=== PATIENT | male | born 1955 | race Caucasian/White ===

== ENCOUNTER 2016-09-28 14:46 | Emergency (ER) | payer OTHER ==
[2016-09-28 14:59] VITALS: BP 119/70; PULSE 62; RESP 18; TEMP 97.9
[2016-09-28] MEDS ORDERED: PROPARACAINE 0.5% OPHTH DROPS 15 ML BTL ONE (15:00)
[2016-09-28] MEDS: PILOCARPINE 1% OPHTH DROPS 15 ML BTL LEFT EYE STA ×2 (15:07→15:14)
[2016-09-28] MEDS ORDERED: PROPARACAINE 0.5% OPHTH DROPS 15 ML BTL LEFT EYE STA (15:08)
[2016-09-28] MEDS ORDERED: TOBRAMYCIN 0.3% OPHTH OINT 3.5 GM TUBE LEFT EYE STA (15:23)
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
== END 2016-09-28 15:33 | disposition home or self-care (01) ==
LOC: EC 14:46
DX: S05.02XA Injury of conjunctiva and corneal abrasion without foreign body, left eye, initial encounter (principal); W20.8XXA Other cause of strike by thrown, projected or falling object, initial encounter
CPT/HCPCS: 99283

== ENCOUNTER 2017-01-13 08:05 | Day surgery (SDC) | payer OTHER ==
[2017-01-11 13:04] VITALS: BMI 26.4
[~2017-01-13 08:05] MED LIST: LACTATED RINGERS 1,000 ML IV SCH
[2017-01-13 08:22] VITALS: RESP 16; TEMP 98.3
[2017-01-13] MEDS ORDERED: LIDOCAINE 1% 20 ML VIAL (10MG/ML) FOR IV START INTRADERMA ONE (08:22)
[2017-01-13] MEDS ORDERED: PROPOFOL 10 MG/ML 20 ML VIAL IV ONE (09:04)
--- NOTE | 2017-01-13 09:18 | P.PCN ---
Date of Procedure: 01/13/17 Procedure(s) Performed: BRIEF HISTORY: Patient is a 61-year-old pleasant male, scheduled for an elective colonoscopy as a part of evaluation of change in bowel habits. PROCEDURE PERFORMED: Colonoscopy. PREOPERATIVE DIAGNOSIS: Change In bowel habits. IV sedation per Anesthesia. PROCEDURE: After informed consent was obtained, the patient, was brought into the endoscopy unit. IV sedation was administered by Anesthesia under continuous monitoring. Digital rectal examination was normal. Initially the Olympus CF- 160 flexible video colonoscope was then inserted in the rectum, gradually advanced into the cecum without any difficulty. Careful examination was performed as the scope was gradually being withdrawn. Ileocecal valve and the appendiceal orifice were visualized and appeared normal. Prep was excellent. Mucosa of the cecum, ascending colon, transverse colon, descending colon, sigmoid colon, and rectum appeared normal. Diffuse scattered diverticulosis seen. Retroflexion was performed in the rectum and no lesions were seen. The patient tolerated the procedure well. IMPRESSION: Normal-appearing colon from rectum to cecum with no evidence of colorectal neoplasia. . Diffuse scattered diverticulosis. RECOMMENDATIONS: Findings of this examination were discussed with the patient as well as his family. He was advised to have a repeat screening colonoscopy in 10 years..
[2017-01-13 10:07] VITALS: BP 117/71; PULSE 52
== END 2017-01-13 10:23 | disposition home or self-care (01) ==
LOC: ORWHC2ENDO 08:05
PROVIDERS: ATTEND Internal Medicine Gastroenterology
DX: K57.30 Diverticulosis of large intestine without perforation or abscess without bleeding (principal); N40.0 Benign prostatic hyperplasia without lower urinary tract symptoms; Z79.899 Other long term (current) drug therapy
CPT/HCPCS: 45378; J2704

== ENCOUNTER → 2017-03-27 | Outpatient (CLI) | payer OTHER ==
--- NOTE | 2017-03-27 09:38 | XR ---
EXAMINATION TYPE: XR cervical spine comp DATE OF EXAM: 03/27/2017 COMPARISON: NONE HISTORY: Pain TECHNIQUE: Four views are submitted. FINDINGS: The odontoid is intact. There are no compression deformities. The prevertebral soft tissue structur es are within normal limits. There is multilevel degenerative disc disease with severe changes at C5 -6 and C6-C7. Posterior spondylosis and facet arthropathy noted at multiple levels. Severe foraminal encroachment C5-6 and C6-C7. IMPRESSION: 1. Multilevel severe degenerative disc disease and facet arthropathy with foraminal encroachment. MRI recommended.
== END ==
LOC: RADXRYALE 09:04
PROVIDERS: ATTEND Physician Assistant Medical
DX: M99.71 Connective tissue and disc stenosis of intervertebral foramina of cervical region (principal); M50.30 Other cervical disc degeneration, unspecified cervical region; M46.82 Other specified inflammatory spondylopathies, cervical region
CPT/HCPCS: 72050

== ENCOUNTER → 2017-04-26 | Outpatient (CLI) | payer OTHER ==
--- NOTE | 2017-04-26 17:57 | MR ---
EXAMINATION TYPE: MR cervical spine wo con DATE OF EXAM: 04/26/2017 COMPARISON: Plain film 03/27/2017 HISTORY: Neck pain, faith arm numbness x 3 months TECHNIQUE: Multiplanar, multisequence images of the cervical spine were acquired. C2-C3: No evidence for degenerative disc disease. No disc bulge/herniation or protrusion. No Canal stenosis. Foramina are patent bilaterally. C3-C4: Loss of disc signal is compatible with disc desiccation. Lateral extension endplate disc compl ex causes some mild foraminal encroachment on the right. No significant central stenosis. C4-C5: Loss of disc height and signal is present, posterior broad-based disc bulge causes mild anteri or mass effect on the thecal sac. Lateral extension of endplate disc complex causes foraminal encroac hment which is mild right greater than left. No significant central stenosis. C5-C6: There is loss of disc height with associated endplate spondylosis, discogenic marrow signal ch aram. Posterior extension of endplate disc complex may contact the anterior cervical cord, mild to mo derate central canal stenosis is present, lateral extension endplate disc complex causes foraminal en croachment right greater than left. C6-C7: Posterior extension of endplate disc complex causes anterior mass effect on the thecal sac. Le ft greater than right foraminal encroachment is present. Mild central stenosis. Loss of disc height a nd signal is present. C7-T1: No evidence for degenerative disc disease. No disc bulge/herniation or protrusion. No Canal stenosis. Foramina are patent bilaterally. Cervical segments are intact. There is normal alignment. Cervical spinal cord is of normal signal. Craniovertebral junction relationships are within normal limits. IMPRESSION: Degenerative disc disease, spinal stenosis, multilevel foraminal encroachment as described.
== END | disposition home or self-care (01) ==
LOC: RADMRIMAIN 15:43
PROVIDERS: ATTEND Physician Assistant Medical
DX: M48.02 Spinal stenosis, cervical region (principal); M50.31 Other cervical disc degeneration, high cervical region
CPT/HCPCS: 72141

== ENCOUNTER → 2017-10-26 | Outpatient (CLI) | payer OTHER ==
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
== END | disposition home or self-care (01) ==
LOC: RADXRMAIN 10:35
PROVIDERS: ATTEND Emergency Medicine
DX: M47.814 Spondylosis without myelopathy or radiculopathy, thoracic region (principal); M41.86 Other forms of scoliosis, lumbar region; M51.36 Other intervertebral disc degeneration, lumbar region
CPT/HCPCS: 72072; 72100

== ENCOUNTER → 2017-10-30 | Outpatient (CLI) | payer OTHER ==
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
== END | disposition home or self-care (01) ==
LOC: RADCTMAIN 11:57
PROVIDERS: ATTEND Emergency Medicine
DX: M50.322 Other cervical disc degeneration at C5-C6 level (principal); M99.71 Connective tissue and disc stenosis of intervertebral foramina of cervical region; R51 Headache
CPT/HCPCS: 70450; 72125

== ENCOUNTER 2017-11-24 15:14 | Emergency (ER) | payer OTHER ==
[2017-11-24 15:45] VITALS: RESP 18
[2017-11-24] MEDS ORDERED: TETANUS-DIPHTHERIA TOX (PF) 0.5 ML VIAL IM ONE (15:59)
--- NOTE | 2017-11-24 16:02 | ED ---
Wound/Laceration HPI - General Chief Complaint: Wound/Laceration Stated Complaint: IHS/Lac thumb Time Seen by Provider: 11/24/17 15:49 Source: patient Mode of arrival: ambulatory Limitations: no limitations - History of Present Illness Initial Comments: Patient is a 62-year-old male presenting for right thumb laceration. Patient states that he was at work and he cut the right thumb on sheet metal. He went to an urgent care and they sent him here because there was concern about tendon injury. He denies any numbness in the thumb as well as decreased strength. He also is unsure when his last tetanus shot was - Related Data Home Medications Medication Instructions Recorded Confirmed Finasteride [Proscar] 5 mg PO HS 11/24/17 11/24/17 Allergies Allergy/AdvReac Type Severity Reaction Status Date / Time No Known Allergies Allergy Verified 11/24/17 16:09 Review of Systems ROS Statement: Those systems with pertinent positive or pertinent negative responses have been documented in the HPI. Constitutional: Negative for chills, fatigue and fever. HENT: Negative for congestion. Respiratory: Negative for chest tightness, shortness of breath and wheezing. Negative for cough Cardiovascular: Negative for chest pain and palpitations. Gastrointestinal: Negative for abdominal pain. Negative for abdominal distention , diarrhea, nausea and vomiting. Genitourinary: Negative for dysuria. Musculoskeletal: Negative for back pain, neck pain and neck stiffness. Skin: Positive for laceration Neurological: Negative for dizziness, speech difficulty, weakness and light- headedness. Psychiatric/Behavioral: Negative for agitation and confusion. Negative for anxiety ROS Other: All systems not noted in ROS Statement are negative. Past Medical History Past Medical History: Prostate Disorder Additional Past Medical History / Comment(s): hx diverticulis, HX KIDNEY STONES History of Any Multi-Drug Resistant Organisms: None Reported Past Surgical History: Tonsillectomy Additional Past Surgical History / Comment(s): previous colonoscopy Past Anesthesia/Blood Transfusion Reactions: No Reported Reaction Past Psychological History: No Psychological Hx Reported Smoking Status: Never smoker Past Alcohol Use History: Occasional Past Drug Use History: None Reported - Past Family History Mother Family Medical History: No Reported History General Exam - General Exam Comments Initial Comments: Constitutional: Pt is oriented to person, place, and time. Pt appears well- developed and well-nourished. No distress. HENT: Head: Normocephalic and atraumatic. Eyes: EOM are normal. Neck: Normal range of motion. Neck supple. Cardiovascular: Normal rate, regular rhythm, S1 normal, S2 normal and normal heart sounds. Exam reveals no gallop and no friction rub. No murmur heard. Pulmonary/Chest: Effort normal and breath sounds normal. No tachypnea and no bradypnea. No respiratory distress. No wheezes or rales noted. Abdominal: Soft. Bowel sounds are normal. Pt exhibits no shifting dullness, no distension, no pulsatile liver, no fluid wave, no abdominal bruit and no ascites. There is no tenderness. There is no rigidity, no rebound, no guarding, no tenderness at McBurney's point and negative Pires's sign. Musculoskeletal: 1 cm laceration on the dorsal aspect of the right thumb. Full range of motion is present and 5 out of 5 strength in all joints of the right thumb. Neurovascularly intact. Neurological: Pt is alert and oriented to person, place, and time. No cranial nerve deficit. Skin: Skin is warm and dry. No rash noted. Pt is not diaphoretic. No erythema. No pallor. Laceration as noted above Psychiatric: Pt has a normal mood and affect. Pt behavior is normal. Thought content normal. Limitations: no limitations Course Vital Signs 11/24/17 11/24/17 15:41 17:47 Temperature 98.3 F 97.8 F Pulse Rate 73 57 L Respiratory 18 18 Rate Blood Pressure 107/65 131/81 O2 Sat by Pulse 97 96 Oximetry Procedures - Laceration Laceration #1 Time Out Performed: Yes Site: hand Size (cm): 1 Description: linear Depth: simple, single layer Anesthetic Used: lidocaine 1% Anesthesia Technique: local infiltration Pre-repair: wound explored, irrigated extensively, deep structures intact Type of Sutures: nylon Size of Sutures: 5-0 Number of Sutures: 3 Technique: simple, interrupted Patient Tolerated Procedure: well Medical Decision Making - Medical Decision Making X-ray was performed and showed no evidence of acute pathology or retained foreign body. There also appeared to be no tendon involvement as there was full range of motion of the DIP and the patient was neurovascularly intact. Patient was given TD shot and laceration was repaired As noted in the procedure portion of this note. Patient was advised to follow up with PCP in next 1-2 days as well as suture removal in approximately 5-7 days. He is advised to return to emergency department if he started to develop significant swelling, effusion, erythema or fevers. Patient was agreeable to plan. Disposition Clinical Impression: Thumb laceration Disposition: HOME SELF-CARE Condition: Good Instructions: Laceration (ED) Is patient prescribed a controlled substance at d/c from ED?: No Referrals: [facility] [Primary Care Provider] - 1-2 days Time of Disposition: 17:23
--- NOTE | 2017-11-24 16:30 | XR ---
EXAMINATION TYPE: XR hand limited RT DATE OF EXAM: 11/24/2017 CLINICAL HISTORY: Laceration injury with pain TECHNIQUE: Frontal and lateral images of the right hand are obtained. COMPARISON: None. FINDINGS: There is no acute fracture/dislocation evident in the right hand. The joint spaces in the right hand appear within normal limits. Linear lucency consistent with laceration is seen in the payton on of the first interphalangeal joint on 2 views. No suspicious radiodense foreign body is identified . Overlying bracelet right wrist level is incidentally seen. IMPRESSION: There is no acute fracture or dislocation in the right hand.
[2017-11-24] MEDS ORDERED: LIDOCAINE (PF) 10 MG/ML 2 ML VIAL SQ STA (16:41)
[2017-11-24] MEDS ORDERED: LIDOCAINE 1% INJ 10MG/ML (20 ML MDV) SQ STA (16:54)
[2017-11-24 17:48] VITALS: BP 131/81; PULSE 57; TEMP 97.8
== END 2017-11-24 17:48 | disposition home or self-care (01) ==
LOC: EC 15:14
DX: S61.011A Laceration without foreign body of right thumb without damage to nail, initial encounter (principal); N42.9 Disorder of prostate, unspecified; Z79.899 Other long term (current) drug therapy; Z23 Encounter for immunization; W45.8XXA Other foreign body or object entering through skin, initial encounter; Y93.89 Activity, other specified; Y92.69 Other specified industrial and construction area as the place of occurrence of the external cause; Y99.0 Civilian activity done for income or pay
CPT/HCPCS: 12001; 90471; 90714; 99283

== ENCOUNTER → 2017-12-04 | Outpatient (CLI) | payer OTHER | END | disposition home or self-care (01) | LOC: LABWHC1 15:40 | PROVIDERS: ATTEND Family Medicine | DX: Z13.88 Encounter for screening for disorder due to exposure to contaminants (principal) | CPT/HCPCS: 36415; 83655 ==

== ENCOUNTER 2018-03-25 12:16 | Emergency (ER) | payer OTHER ==
[2018-03-25 12:37] VITALS: BP 99/65; PULSE 85; RESP 18; TEMP 97.8
[2018-03-25] MEDS ORDERED: ORPHENADRINE 30 MG/ML 2 ML VIAL IM STA (13:26)
[2018-03-25] MEDS ORDERED: KETOROLAC 60 MG/2 ML VIAL IM STA (13:26)
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
== END 2018-03-25 15:26 | disposition home or self-care (01) ==
LOC: EC 12:16 → SUPCPDRO 12:16 → EC 15:26
DX: M54.5 Low back pain (principal); Z79.899 Other long term (current) drug therapy; Z87.442 Personal history of urinary calculi
CPT/HCPCS: 72100; 99283; 96372 ×2; J2360; J1885

== ENCOUNTER → 2018-05-28 | Outpatient (CLI) | payer OTHER ==
--- NOTE | 2018-05-28 07:48 | MR ---
EXAMINATION TYPE: MR lumbar spine wo con DATE OF EXAM: 05/28/2018 6:42 AM COMPARISON: NONE HISTORY: Low back pain Multiplanar, MultiSpin echo imaging of the lumbar spine was performed. T11-T12: Moderate disc desiccation. Left paracentral disc herniation identified only on the sagittal data set. Dedicated MRI of the thoracic spine advised. T12-L1: Within normal limits. L1-L2: There is mild disc desiccation. Mild circumferential disc bulge noted. Minimal effacement vent ral thecal sac. No evidence for disc herniation or central stenosis. Neural foramina are patent bilat erally. Ventral spondylosis noted. L2-L3: There is mild disc desiccation. Mild circumferential disc bulge noted. Minimal effacement vent ral thecal sac. No evidence for disc herniation or central stenosis. Neural foramina are patent bilat erally. Ventral spondylosis noted. L3-L4: There is mild disc desiccation. Mild circumferential disc bulge noted. Minimal effacement vent ral thecal sac. No evidence for disc herniation or central stenosis. Neural foramina are patent bilat erally. Ventral spondylosis noted. L4-L5: There is mild disc desiccation. Mild circumferential disc bulge noted. Minimal effacement vent ral thecal sac. No evidence for disc herniation or central stenosis. Neural foramina are patent bilat erally. Ventral spondylosis noted. L5-S1: There is mild disc desiccation. Mild circumferential disc bulge noted. Minimal effacement vent ral thecal sac. No evidence for disc herniation or central stenosis. Neural foramina are patent bilat erally. Ventral spondylosis noted. Lumbar segments are intact. No paraspinal masses are identified. Conus medullaris has a normal appe arance. IMPRESSION: 1. Left paracentral disc herniation at T11-12. Dedicated MRI of the thoracic spine is advised. See ab ove. 2. Multilevel degenerative disc disease with disc bulging. No disc herniation or central stenosis cecilia reciated.
== END | disposition home or self-care (01) ==
LOC: RADMRIMAIN 06:05
PROVIDERS: ATTEND Family Medicine
DX: M51.16 Intervertebral disc disorders with radiculopathy, lumbar region (principal)
CPT/HCPCS: 72148

== ENCOUNTER → 2018-06-08 | Outpatient (CLI) | payer OTHER ==
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
== END ==
LOC: RADMRIMAIN 06:01
PROVIDERS: ATTEND Family Medicine
DX: M51.24 Other intervertebral disc displacement, thoracic region (principal); M47.814 Spondylosis without myelopathy or radiculopathy, thoracic region; D18.09 Hemangioma of other sites
CPT/HCPCS: 72146

== ENCOUNTER 2018-09-09 06:09 | Emergency (ER) | payer OTHER ==
[2018-09-09 06:18] VITALS: TEMP 97.7
[2018-09-09 07:12] LABS: Appearance,Urine Clear (Clear); Bilirubin,Urine Negative (Negative); Blood,Urine Negative (Negative); Color,Urine Yellow; Glucose,Urine (UA) Negative (Negative); Ketones,Urine Negative (Negative); Leukocyte Esterase,Urine Negative (Negative); Nitrite,Urine Negative (Negative); PH, Urine 6.5 (5.0-8.0); Protein,Urine Negative (Negative); Specific Gravity,Urine 1.023 (1.001-1.035); Urobilinogen,Urine <2.0 mg/dL (<2.0)
[2018-09-09] MEDS ORDERED: SODIUM CHLORIDE 0.9% 1,000 ML IV ONE (07:12)
[2018-09-09] MEDS ORDERED: SODIUM CHLORIDE 0.9% 500 ML 500 ML IV ONE (07:12)
[2018-09-09] MEDS ORDERED: KETOROLAC 30 MG/ML 1 ML VIAL IVP STA (07:13)
--- NOTE | 2018-09-09 07:15 | XR ---
EXAM: XR Abdomen, 1 View CLINICAL HISTORY: Pain TECHNIQUE: Upright view of the abdomen/pelvis. COMPARISON: No relevant prior studies available. FINDINGS: No free air. No dilated bowel loops. Increased fecal burden in the right colon. Scoliosis with degenerative changes in the lumbar spine. Small left renal stones. IMPRESSION: No free air. Left renal stones. Increased fecal burden in the right colon. No radiographic evidence of small bowel obstruction.
--- NOTE | 2018-09-09 07:27 | XR ---
EXAM: XR Lumbar Spine, 2 or 3 Views CLINICAL HISTORY: Pain TECHNIQUE: Frontal and lateral views of the lumbar spine. COMPARISON: May 28, 2018 MRI. FINDINGS: No radiographic evidence of acute fractures. Generalized osteopenia and multilevel degenerative disease. Mild dextroscoliosis. Facet arthropathy. Left renal stones. IMPRESSION: Multilevel disc degenerative disease and facet arthropathy. No acute fracture.
--- NOTE | 2018-09-09 07:28 | ED ---
Back Pain HPI - General Chief Complaint: Back Pain/Injury Stated Complaint: Back Pain Time Seen by Provider: 09/09/18 07:00 Source: patient, RN notes reviewed Limitations: no limitations, physical limitation - History of Present Illness Initial Comments: 62-year-old male presents emergency Department with chief complaint of low back pain. Patient states that he was awoken with sharp low back and flank pain around 5:30 this morning. Patient states took his tramadol which alleviated some of symptoms. Patient has no dysuria no hematuria no diarrhea no constipation. Patient does have a history kidney stones. Patient states that this feels slightly different. Denies any chest pain shortness of breath. Denies any trauma. Patient states pain is slightly worsened by movement. - Related Data Home Medications Medication Instructions Recorded Confirmed Doxazosin Mesylate 8 mg PO DAILY 09/09/18 09/09/18 traMADol HCL [Ultram] 50 mg PO Q6HR PRN 09/09/18 09/09/18 Previous Rx's Medication Instructions Recorded Ketorolac [Toradol] 10 mg PO Q8HR #15 tab 09/09/18 Methocarbamol [Robaxin] 500 mg PO TID PRN #15 tab 09/09/18 Allergies Allergy/AdvReac Type Severity Reaction Status Date / Time No Known Allergies Allergy Verified 09/09/18 08:38 Review of Systems ROS Statement: Those systems with pertinent positive or pertinent negative responses have been documented in the HPI. ROS Other: All systems not noted in ROS Statement are negative. Past Medical History Past Medical History: Prostate Disorder Additional Past Medical History / Comment(s): hx diverticulis, HX KIDNEY STONES, back problems, History of Any Multi-Drug Resistant Organisms: None Reported Past Surgical History: Tonsillectomy Additional Past Surgical History / Comment(s): previous colonoscopy, Past Anesthesia/Blood Transfusion Reactions: No Reported Reaction Past Psychological History: No Psychological Hx Reported Smoking Status: Never smoker Past Alcohol Use History: Occasional Past Drug Use History: None Reported - Past Family History Mother Family Medical History: No Reported History General Exam Limitations: no limitations, physical limitation General appearance: alert, in no apparent distress Head exam: Present: atraumatic, normocephalic, normal inspection Eye exam: Present: normal appearance, PERRL, EOMI. Absent: scleral icterus, conjunctival injection, periorbital swelling Respiratory exam: Present: normal lung sounds bilaterally. Absent: respiratory distress, wheezes, rales, rhonchi, stridor Cardiovascular Exam: Present: regular rate, normal rhythm, normal heart sounds. Absent: systolic murmur, diastolic murmur, rubs, gallop, clicks GI/Abdominal exam: Present: soft, tenderness (Mild lower abdominal), normal bowel sounds. Absent: distended, guarding, rebound, rigid Back exam: Present: full ROM, tenderness, CVA tenderness (R), CVA tenderness (L), paraspinal tenderness. Absent: vertebral tenderness Neurological exam: Present: alert, oriented X3, CN II-XII intact Skin exam: Present: warm, dry, intact, normal color. Absent: rash Course Vital Signs 09/09/18 06:15 Temperature 97.7 F Pulse Rate 71 Respiratory 16 Rate Blood Pressure 107/71 O2 Sat by Pulse 95 Oximetry Medical Decision Making - Medical Decision Making 62-year-old male presents emergency Department with chief complaint of back pain, abdominal discomfort. CT labs urinalysis obtained no acute findings. Patient has bilateral nephrolithiasis. Patient's pain may be mechanical lumbar back pain. Patient will be discharged he'll continue tramadol and will be given Robaxin. Return parameters were discussed. - Lab Data Result diagrams: 09/09/18 07:48 09/09/18 07:48 Lab Results 09/09/18 09/09/18 09/09/18 Range/Units 06:20 07:48 07:48 WBC 8.1 (3.8-10.6) k/uL RBC 5.08 (4.30-5.90) m/uL Hgb 14.7 (13.0-17.5) gm/dL Hct 45.1 (39.0-53.0) % MCV 88.8 (80.0-100.0) fL MCH 28.9 (25.0-35.0) pg MCHC 32.6 (31.0-37.0) g/dL RDW 12.4 (11.5-15.5) % Plt Count 236 (150-450) k/uL Neutrophils % 69 % Lymphocytes % 21 % Monocytes % 6 % Eosinophils % 1 % Basophils % 1 % Neutrophils # 5.6 (1.3-7.7) k/uL Lymphocytes # 1.7 (1.0-4.8) k/uL Monocytes # 0.5 (0-1.0) k/uL Eosinophils # 0.1 (0-0.7) k/uL Basophils # 0.1 (0-0.2) k/uL Sodium 139 (137-145) mmol/L Potassium 4.3 (3.5-5.1) mmol/L Chloride 110 H (98-107) mmol/L Carbon Dioxide 23 (22-30) mmol/L Anion Gap 6 mmol/L BUN 23 H (9-20) mg/dL Creatinine 0.93 (0.66-1.25) mg/dL Est GFR (CKD-EPI)AfAm >90 (>60 ml/min/1.73 sqM) Est GFR (CKD-EPI)NonAf 88 (>60 ml/min/1.73 sqM) Glucose 107 H (74-99) mg/dL Calcium 8.8 (8.4-10.2) mg/dL Total Bilirubin 0.7 (0.2-1.3) mg/dL AST 20 (17-59) U/L ALT 23 (21-72) U/L Alkaline Phosphatase 65 (38-126) U/L Total Protein 6.3 (6.3-8.2) g/dL Albumin 3.8 (3.5-5.0) g/dL Lipase 62 (23-300) U/L Urine Color Yellow Urine Appearance Clear (Clear) Urine pH 6.5 (5.0-8.0) Ur Specific Stryker 1.023 (1.001-1.035) Urine Protein Negative (Negative) Urine Glucose (UA) Negative (Negative) Urine Ketones Negative (Negative) Urine Blood Negative (Negative) Urine Nitrite Negative (Negative) Urine Bilirubin Negative (Negative) Urine Urobilinogen <2.0 (<2.0) mg/dL Ur Leukocyte Esterase Negative (Negative) Disposition Clinical Impression: Back pain, Nephrolithiasis Disposition: HOME SELF-CARE Condition: Stable Instructions (If sedation given, give patient instructions): Acute Low Back Pain (ED) Additional Instructions: Please return to the Emergency Department if symptoms worsen or any other concerns. Prescriptions: Methocarbamol [Robaxin] 500 mg PO TID PRN #15 tab PRN Reason: muscle spasms Ketorolac [Toradol] 10 mg PO Q8HR #15 tab Is patient prescribed a controlled substance at d/c from ED?: No Referrals: [facility],Clinic [Primary Care Provider] - 1-2 days Time of Disposition: 08:49
[2018-09-09 08:07] LABS: Basophils # (A) 0.1 k/uL (0-0.2); Basophils % (A) 1 %; Eosinophils # (A) 0.1 k/uL (0-0.7); Eosinophils % (A) 1 %; HCT 45.1 % (39.0-53.0); HGB 14.7 gm/dL (13.0-17.5); Lymphocytes # (A) 1.7 k/uL (1.0-4.8); Lymphocytes % (A) 21 %; MCH 28.9 pg (25.0-35.0); MCHC 32.6 g/dL (31.0-37.0); MCV 88.8 fL (80.0-100.0); Mean Platelet Volume 6.9; Monocytes # (A) 0.5 k/uL (0-1.0); Monocytes % (A) 6 %; Neutrophils # (A) 5.6 k/uL (1.3-7.7); Neutrophils % (A) 69 %; Platelet Count 236 k/uL (150-450); RBC 5.08 m/uL (4.30-5.90); RDW 12.4 % (11.5-15.5); WBC 8.1 k/uL (3.8-10.6)
[2018-09-09 08:22] LABS: ALT 23 U/L (21-72); AST 20 U/L (17-59); Albumin 3.8 g/dL (3.5-5.0); Alkaline Phosphatase 65 U/L (38-126); Anion Gap 6 mmol/L; Blood Urea Nitrogen 23 mg/dL (9-20); Calcium 8.8 mg/dL (8.4-10.2); Carbon Dioxide 23 mmol/L (22-30); Chloride 110 mmol/L (98-107); Glucose 107 mg/dL (74-99); Lipase 62 U/L (23-300); Potassium 4.3 mmol/L (3.5-5.1); Sodium 139 mmol/L (137-145); Total Bilirubin 0.7 mg/dL (0.2-1.3); Total Protein 6.3 g/dL (6.3-8.2)
--- NOTE | 2018-09-09 08:44 | CT ---
EXAMINATION TYPE: CT abdomen pelvis wo con DATE OF EXAM: 09/09/2018 COMPARISON: Previous study dated 12/17/2012. HISTORY: Low back pain CT DLP: 552.1 mGycm Automated exposure control for dose reduction was used. FINDINGS: There is dependent atelectasis in the dependent portions of both lungs. There is no pleural or pericardial fluid. The heart is not enlarged. Within the abdomen, there is a stable appearing lucent lesion in the dome of the posterior segment of the right lobe of the liver unchanged from previous. The spleen and gallbladder are normal. Both adrenal glands are normal. There are several small stones in the posterior upper pole calyx of the right kidney. The largest jose sures 3 mm. There is no evidence of hydronephrosis. There is a 6 mm stone in the anterior middle pole calyx of the left kidney. There is no hydronephrosis. Limited views of the pancreas are unremarkable. There is no significant retroperitoneal, iliac or inguinal adenopathy. The bladder appears unremarkable. There are scattered diverticula present on the left side of the colon. I do not see radiographic evid ence of diverticulitis. The appendix is normal. Small bowel loops are of normal caliber. There is no free fluid and no free air. There is degenerative disc disease, facet arthropathy and mild hypertrophic spondylosis throughout th e lumbar spine. IMPRESSION: 1. BILATERAL NONOBSTRUCTING NEPHROLITHIASIS. 2. STABLE LESION IN THE RIGHT LOBE OF THE LIVER COULD BE FURTHER ASSESSED WITH ULTRASOUND. 3. UNCOMPLICATED DIVERTICULOSIS OF THE LEFT SIDE OF THE COLON. 4. DEGENERATIVE CHANGES WITHIN THE SPINE. 5. NORMAL-APPEARING APPENDIX.
[2018-09-09 09:28] VITALS: BP 116/72; PULSE 53; RESP 18
== END 2018-09-09 09:27 | disposition home or self-care (01) ==
LOC: EC 06:09
DX: N20.0 Calculus of kidney (principal); N42.9 Disorder of prostate, unspecified; Z79.899 Other long term (current) drug therapy; Z87.442 Personal history of urinary calculi
CPT/HCPCS: 36415; 80053; 83690; 85025; 81003; 72100; 74018; 74176; 99284; 96374; 96361 ×2; J1885

== ENCOUNTER → 2018-11-26 | Outpatient (CLI) | payer OTHER ==
--- NOTE | 2018-11-26 15:16 | XR ---
EXAMINATION TYPE: XR chest 2V DATE OF EXAM: 11/26/2018 COMPARISON: None INDICATION: Contusion pneumothorax left lower rib pain TECHNIQUE: Frontal and lateral views of the chest are obtained. FINDINGS: The heart size is normal. The pulmonary vasculature is normal. The lungs are clear. No pneumothorax is evident. Old rib fractures in the upper left ribs are eviden t. IMPRESSION: 1. No acute pulmonary process. 2. No acute rib abnormalities
--- NOTE | 2018-11-26 15:18 | XR ---
EXAMINATION TYPE: XR ribs LT DATE OF EXAM: 11/26/2018 COMPARISON: None HISTORY: Fall contusion pain TECHNIQUE: Two-view left RIBS FINDINGS: Old left fourth rib fractures evident. No acute left-sided rib fractures are evident. No pn eumothorax is evident. IMPRESSION: 1. Normal left ribs
== END | disposition home or self-care (01) ==
LOC: RADXRMAIN 14:29
PROVIDERS: ATTEND Emergency Medicine
DX: S20.212A Contusion of left front wall of thorax, initial encounter (principal)
CPT/HCPCS: 71046

== ENCOUNTER → 2019-09-04 | Outpatient (CLI) | payer OTHER ==
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
== END | disposition home or self-care (01) ==
LOC: PNWHC3 06:45
PROVIDERS: ATTEND Anesthesiology
DX: Z53.9 Procedure and treatment not carried out, unspecified reason (principal)

== ENCOUNTER → 2019-09-17 | Outpatient (CLI) | payer OTHER | END | disposition home or self-care (01) | LOC: LABWHC1 08:01 | PROVIDERS: ATTEND Family Medicine | DX: Z11.59 Encounter for screening for other viral diseases (principal) ==

== ENCOUNTER → 2019-09-19 | Day surgery (SDC) | payer OTHER ==
[~2019-09-19] MED LIST changes: +IOPAMIDOL M200 10 ML VIAL ONE; +IV FLUID CONTINUATION 1,000 ML IV ONE; +LACTATED RINGERS 1,000 ML IV ONE; +LIDOCAINE 1% (10MG/ML) FOR IV START INTRADERMA ONE; +MIDAZOLAM 2 MG/2 ML VIAL ONE; +ROPIVACAINE 5MG/ML 20ML VIAL ONE; +TRIAMCINOLONE ACETONIDE 40 MG/ML 1 ML VIAL ONE
[2019-09-19 06:19] VITALS: TEMP 97.5
[2019-09-19 07:32] VITALS: RESP 16
--- NOTE | 2019-09-19 07:35 | P.PN ---
Progress Note - Text Progress Note Date: 09/19/19 DESCRIPTION OF PROCEDURE(S): PROCEDURE: Bilateral Lumbar Facet Injections L4-L5, L5-S1 with fluoroscopy PREOPERATIVE DIAGNOSIS : 1- Lumbar spondylosis with Facet Arthropathy without myelopathy . 2- Lumber degenerative disc disease POSTOPERATIVE DIAGNOSIS: 1- Lumbar spondylosis with Facet Arthropathy without myelopathy . 2- Lumber degenerative disc disease ANESTHESIA: IV sedation with Versed 1mg COMPLICATION: None. IV FLUIDS: 100 mL of normal saline. PROCEDURE INDICATION: Chronic low back pain secondary to Facet arthropathy unresponsive to conservative treatment. Patient had diagnostic medial branch block on last visit however after procedure he went home and slept for the entire day and was unable to notice any benefit as the medication and worn off. I discussed that he needed to be active today and also discussed about attempting to do intra-articular injections to provide him with a little longer relief to see if there is any benefit. PROCEDURE DESCRIPTION: the patient was seen and identified in the preop holding area , risks and benefits and possible complications of the procedure and alternative were discussed with the patient, and the patient agreed to proceed with the procedure and signed the consent IV was started and vital signs monitored during the procedure and fluoroscopy was used to maximize the benefit and accuracy of the needle placement, and sedation was given to decrease patient anxiety, patient was taken to the procedure room and placed in prone position vital signs monitored in the back prepped with chlorhexidine X3 then under strict sterile technique using a right oblique fluoroscopy ,the facet joint made up of the inferior articulating process and the superior articulating process of the right L4- 5, and L5-S1 vertebra which corresponding to the fluoroscopy image was identified , a 25- gauge Quincke-type needle was advanced to the inferior aspect of the facet joint of L4-5 and L5-S1. Once the joint was accessed, 0.25ml Omnipaque was used and showed appropriate arthrogram. After negative aspiration for blood and CSF, a solution consisting of 3ml 0.5% Ropivacaine and 40mg/1ml Kenalog was utilized. 1ml of solution was injected into each joint. No pain on injection noted. Procedure was repeated on the left side with same results. At the end of the procedure and the needles removed and a bandage applied after the skin was cleaned the cleaning solution patient taken to recovery room in stable condition and monitors in the recovery room for 20-30 minutes and discharged home in stable condition after discharge criteria met and patient will return in 2-6 weeks to review results of injection.
[2019-09-19 07:51] VITALS: BP 112/70; PULSE 49
--- NOTE | 2019-09-19 09:46 | FL ---
EXAMINATION TYPE: FL guided pain mgmt statistic DATE OF EXAM: 09/19/2019 HISTORY: Fluoroscopy time 24 seconds of fluoroscopy provided. IMPRESSION: 1. Fluoroscopy time.
== END ==
LOC: ORPAIN 06:01
PROVIDERS: ATTEND Anesthesiology
DX: G89.29 Other chronic pain (principal); M47.896 Other spondylosis, lumbar region; M51.36 Other intervertebral disc degeneration, lumbar region
CPT/HCPCS: 64493; 64494; J2250; J3301; Q9966; J2795; 99152

== ENCOUNTER 2019-11-21 10:28 | Day surgery (SDC) | payer OTHER ==
[2019-11-15 11:44] VITALS: BMI 26.4
[~2019-11-21 10:28] MED LIST changes: -IOPAMIDOL M200 10 ML VIAL ONE; -IV FLUID CONTINUATION 1,000 ML IV ONE; -LACTATED RINGERS 1,000 ML IV ONE; -LIDOCAINE 1% (10MG/ML) FOR IV START INTRADERMA ONE; -MIDAZOLAM 2 MG/2 ML VIAL ONE; -ROPIVACAINE 5MG/ML 20ML VIAL ONE; -TRIAMCINOLONE ACETONIDE 40 MG/ML 1 ML VIAL ONE
[2019-11-21 10:52] VITALS: TEMP 96.2
[2019-11-21] MEDS ORDERED: LIDOCAINE 1% (10MG/ML) FOR IV START INTRADERMA ONE (10:56)
[2019-11-21 11:00] LABS: Glucose,Whole Blood 87 mg/dL (75-99)
[2019-11-21] MEDS ORDERED: ROPIVACAINE 5MG/ML 20ML VIAL ONE (11:43)
[2019-11-21] MEDS ORDERED: methylPREDNISolone ACETATE 40 MG/ML 1 ML VIAL ONE (11:43)
[2019-11-21] MEDS ORDERED: fentaNYL (PF) 50 MCG/ML 2 ML AMP ONE (11:43)
[2019-11-21] MEDS ORDERED: MIDAZOLAM 2 MG/2 ML VIAL ONE (11:43)
--- NOTE | 2019-11-21 12:01 | P.PCN ---
Date of Procedure: 11/21/19 Procedure(s) Performed: PREOPERATIVE DIAGNOSIS : 1- Lumbar spondylosis with Facet Arthropathy without myelopathy . POSTOPERATIVE DIAGNOSIS: 1- Lumbar spondylosis with Facet Arthropathy without myelopathy . PROCEDURE: Diagnostic bilateral L3 , L4 , and L5 medial branch block under fluoroscopy guidance(fluoroscopy images available in the radiology Department ) ( To target the facet joint between L4-5 , and L5-S1 ) #2nd diagnostic block ANESTHESIA:, moderate sedation with intravenous Versed 2 mg and Fentanyl 50 mcg. EBL: Minimal COMPLICATION: None. IV FLUIDS: 100 mL of normal saline. PROCEDURE INDICATION: Chronic low back pain secondary to Facet arthropathy unresponsive to conservative treatment. PROCEDURE DESCRIPTION: the patient was seen and identified in the preop holding area , risks and benefits and possible complications of the procedure and alternative were discussed with the patient, and the patient agreed to proceed with the procedure and signed the consent IV was started and vital signs monitored during the procedure and fluoroscopy was used to maximize the benefit and accuracy of the needle placement, and sedation was given to decrease patient anxiety, patient was taken to the procedure room and placed in prone position vital signs monitored in the back prepped with chlorhexidine X3 then under strict sterile technique using a right oblique fluoroscopy ,the junction of the transverse process and the superior articulating process of the right L3 , L4 , and L5 vertebra which corresponding to the fluoroscopy image of the eye of the Tello dog on the block side for the medial branches and subsequently , after local infiltration of skin and subcu tissuies with Ropivacaine 0.5 % , one mL at each level ,then 22-gauge Quincke-type needles , 3 needle was used , each one of them placed at the junction of the base of the transverse process and the superior articular process at the appropriate level, and the needle was advanced until the periosteum contacted, needle placement confirmed with AP oblique and lateral view and after appropriate needle placement confirmed, and after negative aspiration for heme and CSF and there was no paresthesia 1-1/2 mL of Ropivacaine 0.5% mixed with 20 mg Depo-Medrol , then half mL injected at each level after negative aspiration the needle subsequently removed and the same procedure repeated for the left side at left side at L3 , L4 and L5 levels. At the end of the procedure and the needles removed and a bandage applied after the skin was cleaned the cleaning solution patient taken to recovery room in stable condition and monitors in the recovery room for 20-30 minutes and discharged home in stable condition after discharge criteria met and patient will follow up with the pain clinic in 2-4 weeks
[2019-11-21 12:05] VITALS: RESP 16
[2019-11-21 12:21] VITALS: BP 119/66; PULSE 62
[2019-11-21] MEDS ORDERED: IV FLUID CONTINUATION 1,000 ML IV ONE (12:22)
--- NOTE | 2019-11-21 16:46 | FL ---
EXAMINATION TYPE: FL guided pain mgmt statistic DATE OF EXAM: 11/21/2019 CLINICAL HISTORY: Low back pain. TECHNIQUE: Fluoroscopy. COMPARISON: None. FINDINGS: Fluoroscopic guidance was provided during pain relief procedure performed by Dr. Orozco . A total of 21 seconds of fluoroscopic time was utilized during the procedure and 4 spot images are acquired. Images acquired shows needle localization at several levels in the lower lumbar spine and lumbosacral junction. IMPRESSION: As Above.
== END 2019-11-21 12:39 | disposition home or self-care (01) ==
LOC: ORPAIN 10:28
PROVIDERS: ATTEND Specialist
DX: G89.29 Other chronic pain (principal); M47.816 Spondylosis without myelopathy or radiculopathy, lumbar region; E16.2 Hypoglycemia, unspecified
CPT/HCPCS: 64493; 64494; J2250; J1030; J3010; J2795; 99152

== ENCOUNTER → 2020-01-01 | Outpatient (CLI) | payer OTHER ==
[2020-01-01 12:24] VITALS: BP 114/70; PULSE 83; RESP 14; TEMP 98.3
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
== END | disposition home or self-care (01) ==
LOC: PNWHC3 12:05
PROVIDERS: ATTEND Anesthesiology
DX: M51.24 Other intervertebral disc displacement, thoracic region (principal); M47.816 Spondylosis without myelopathy or radiculopathy, lumbar region; Z79.891 Long term (current) use of opiate analgesic; Z79.899 Other long term (current) drug therapy
CPT/HCPCS: 99211

== ENCOUNTER 2020-01-23 06:16 | Day surgery (SDC) | payer OTHER ==
[2020-01-22 11:41] VITALS: BMI 27.1
[2020-01-23 07:11] VITALS: TEMP 98.2
[2020-01-23 07:16] LABS: Glucose,Whole Blood 98 mg/dL (75-99)
[2020-01-23] MEDS ORDERED: LIDOCAINE 1% (10MG/ML) FOR IV START INTRADERMA ONE (07:16)
[2020-01-23] MEDS ORDERED: fentaNYL (PF) 50 MCG/ML 2 ML AMP ONE (07:28)
[2020-01-23] MEDS ORDERED: MIDAZOLAM 2 MG/2 ML VIAL ONE (07:28)
[2020-01-23] MEDS ORDERED: ROPIVACAINE 5MG/ML 20ML VIAL ONE (07:28)
[2020-01-23] MEDS ORDERED: TRIAMCINOLONE ACETONIDE 40 MG/ML 1 ML VIAL ONE (07:28)
--- NOTE | 2020-01-23 08:06 | P.PCN ---
Date of Procedure: 01/23/20 Surgeon: Chris Salazar Pathology: none sent Condition: stable Disposition: PACU Description of Procedure: PREOPERATIVE DIAGNOSIS: Lumbar spondylosis without myelopathy POSTOPERATIVE DIAGNOSIS: Lumbar spondylosis without myelopathy PROCEDURES : bilateral Radiofrequency thermocoagulation L4-L5, and L5-S1 medial branch, with fluoroscopic guidance ANESTHESIA: IV moderate conscious sedation with versed and fentanyl and local infiltration with lidocaine 1% 5 ml Physician:Chris Salazar MD EBL: Minimal PROCEDURE INDICATION: The patient with low back pain secondary to lumbar facet arthropathy who had more than 50% relief of her pain with previous diagnostic lumbar medial branch block with bupivacaine. PROCEDURE DESCRIPTION / TECHNIQUE: The patient was seen and identified in the preoperative area. Risks, benefits, complications, including but not limited to risk of infection ,bleeding , allergic reactions to the medications and no complete pain relief , and alternatives were discussed with the patient, the patient agreed to proceed with the procedure and signed the consent. IV was started. Vital signs remained stable throughout the procedure. Patient was taken to the OR and time out was completed. The patient was placed in the prone position on the procedure table. The lumber area was prepped and draped in the usual sterile fashion. . Vital signs were closely monitored during the procedure .IV sedation was used during the procedure to decrease patients anxiety. The target points were identified as follows: For the L5-S1 level which corresponds to the dorsal ramus of L5 the target point was at the superior medial aspect of the sacral ala on the -rtside of the spine on the AP view of fluoroscopy and for the L3, and L4 medial branches the target points were at the connection between the transverse process and the superior articular process of L4, and L5 vertebra respectively on the rt oblique view of fluoroscopy. skin was marked, and localized with 1% lidocaineat these points. Subsequently, an 18 -xq radiofrequency needles with a 10-mm curved active tips were advanced guided by fluoroscopy to each of the target points mentioned above in a superior medial direction to get the active tips as parallel as possible to the medial branches tracks. AP, oblique, and lateral views of fluoroscopy were used to verify needle tips position. Each level then underwent motor testing at 2.5 Hz and 0 to 3 volt with local stimulation, but no radicular symptoms down the legs. Thereafter radiofrequency thermocoagulation at 80 degrees celsius for 90 seconds after injecting 1 ml of PF Marcaine 0.5%(3 mls) with 20 mg of Kenalog. the procedure was repeated in the same manner on the left side. At the end of the procedure, the skin was cleansed and bandages were applied. A copy of needle placement fluoroscopy was saved on the C-arm machine. COMPLICATIONS: No acute complications. DISPOSITION / PLANS: The patient was placed in a supine position and transferred to the recovery area in a stable condition for observation and was discharged from the recovery room after meeting discharge criteria. Home discharge instructions given to the patient by the staff. The patient was reexamined prior to discharge. The patient will schedule a follow up in the clinic in 2-4 weeks.
[2020-01-23] MEDS ORDERED: IV FLUID CONTINUATION 1,000 ML IV ONE (08:13)
[2020-01-23 08:16] VITALS: RESP 18
[2020-01-23 08:28] VITALS: BP 105/69; PULSE 65
--- NOTE | 2020-01-23 15:18 | FL ---
EXAMINATION TYPE: FL guided pain mgmt statistic DATE OF EXAM: 01/23/2020 COMPARISON: NONE HISTORY: Bilateral lumbar radiofrequency TECHNIQUE: Fluoroscopy. FINDINGS: Fluoroscopic guidance was provided during procedure performed by Dr. Salazar. A total of 29 seconds of fluoroscopic time was utilized during the procedure and 6 spot images was acquired. IMPRESSION: As Above.
== END 2020-01-23 08:50 | disposition home or self-care (01) ==
LOC: ORPAIN 06:16
PROVIDERS: ATTEND Anesthesiology
DX: M47.816 Spondylosis without myelopathy or radiculopathy, lumbar region (principal); E16.2 Hypoglycemia, unspecified
CPT/HCPCS: 64635; 64636; J2250; J3301; J3010; J2795; 99152; 99153

== ENCOUNTER → 2020-02-19 | Outpatient (CLI) | payer OTHER ==
[2020-02-19 08:46] VITALS: BP 121/76; PULSE 79; RESP 16; TEMP 97.7
--- NOTE | 2020-02-19 09:36 | P.PN ---
Subjective Progress Note Date: 02/19/20 This is for visit for this 64 years old male with a chronic history of severe low back pain is diagnosed with lumbar degenerative disc disease and lumbar spondylosis with lumbar facet arthropathy, without myelopathy, the recently with the daughter failed the medial branch lumbar area patient had good pain relief from it but he continued to have bilateral severe bilateral buttock pain, the pain is constant and increases with any activity interfering with her quality of life he continue to use Ultram 50 mg when necessary every 8 hours, he denies any motor or sensory deficit denies any fever or night sweats and there is no change in the bowel movement or urination Objective - Vital Signs Vital signs: Vital Signs Temp 97.7 F 02/19/20 08:39 Pulse 79 02/19/20 08:39 Resp 16 02/19/20 08:39 BP 121/76 02/19/20 08:39 Pulse Ox 99 02/19/20 08:39 Intake & Output 02/18/20 02/19/20 02/19/20 18:59 06:59 18:59 Weight 84.822 kg - Exam Physical Examinations : -Constitutiona : Cooperative , not in acute distress . -HEENT : nech : supple , no Lymphadenopathy , normal thyroid size - Genitourinary : Defferred . - neurologic : Cranial nerve II to XII intact , no focal neurological deffecit . -psychatric : alert , oriented X 3 , appropriate affect , intact judgment and insight . -Lymphatic : no Lymphadenopathy . - musculoskeltal : Lumber spine moter stegnth lower extremities ,thigh and legs 5/5 Right side , 5/5 Left side deep tendon reflexes : normal Knee Jerk , normal ankle Jerk lumber facet Loading Test = negative bilaterally Range of motion of the lumbar spine Flexion 60 degrees, extension 30 degrees strait leg raising test = negative bilateral Fabere test= negative bilaterally. Sever tenderness over the Sacroiliac joint on the Right , and Left sides Gaenslen test= positive right ,and positive left . Seated flexion test= positive right ,and positive Left . Assessment and Plan Plan: Assessment and plan=1-lumbar degenerative disc disease 2-lumbar spondylosis with lumbar facet arthropathy without myelopathy 3-bilateral sacroiliitis. he benefit from bilateral sacroiliac joint steroid injections under fluoroscopy guidance - PQRS measures = - Patient's medications are documented in the chart. -Tobacco use is negative and counseling.Given. -Patient's has not received pneumococcal vaccine. -Advanced care planning discussed, patient not eligible. -Opiate contract signed. -Pain positive and follow-up visit/procedure is scheduled. -Patient's blood pressure measured [121/76 ] , and documented in the record ,and patient will follow up with the primary care. -Patient's weight was measured and body mass index [ 26.1] above the normal limits and counseling was done. and patient instructed to follow-up with the primary care physician. -Patient was not identified as an unhealthy alcohol user Time with Patient: Less than 30
== END | disposition home or self-care (01) ==
LOC: PNWHC3 08:24
PROVIDERS: ATTEND Specialist
DX: M51.36 Other intervertebral disc degeneration, lumbar region (principal); M47.816 Spondylosis without myelopathy or radiculopathy, lumbar region; M46.1 Sacroiliitis, not elsewhere classified
CPT/HCPCS: 99211

== ENCOUNTER 2020-03-24 12:58 | Day surgery (SDC) | payer OTHER ==
[2020-03-20 15:41] VITALS: BMI 27.1
[2020-03-24 13:36] VITALS: RESP 16; TEMP 96.9
[2020-03-24] MEDS ORDERED: LIDOCAINE 1% (10MG/ML) FOR IV START INTRADERMA ONE (13:38)
[2020-03-24] MEDS ORDERED: fentaNYL (PF) 50 MCG/ML 2 ML AMP ONE (14:01)
[2020-03-24] MEDS ORDERED: MIDAZOLAM 2 MG/2 ML VIAL ONE (14:01)
[2020-03-24] MEDS ORDERED: ROPIVACAINE 5MG/ML 20ML VIAL ONE (14:01)
[2020-03-24] MEDS ORDERED: TRIAMCINOLONE ACETONIDE 40 MG/ML 1 ML VIAL ONE (14:01)
--- NOTE | 2020-03-24 14:12 | P.PCN ---
Date of Procedure: 03/24/20 Description of Procedure: Surgeon: Chris Salazar Pathology: none sent Condition: stable Disposition: PACU Description of Procedure: Preoperative diagnoses= bilateral sacroiliac joint dysfunction and sacroiliitis Postoperative diagnoses= same as preoperative diagnosis. Procedure= bilateral sacroiliac joint steroid injection under fluoroscopic guidance. Anesthesia= local anesthesia with lidocaine 1% and IV moderate conscious sedation with fentanyl and Versed Estimated blood loss=minimal. Procedure indication= the patient had a history of severe chronic low back pain, diagnosed with sacroiliitis and lumbar sacral facet arthropathy unresponsive to conservative treatment. Procedure description= the patient was seen and identified in the preoperative holding area, risks and benefits and alternative of the procedure and possible complications discussed with the patient, patient signed the consent. an IV was started, and vital signs were monitored and were stable throughout the procedure, patient was placed in the prone position or table and the lumbosacral area was prepped and draped with a sterile fashion, vital signs were closely monitored during the procedure.The right sacroiliac joint was identified on the AP view of fluoroscopy then the C-arm was tilted to the contralateral oblique position to superimpose the anterior and posterior joint lines on each other and to have a unified joint line with the target point at the inferior one third of this line. I used 22-gauge 3-1/2 inch Quincke spinal needle for this procedure and after getting into the sacroiliac joint I injected 20 mg of Kenalog +2 MLS of Ropivacaine 0.5%. Patient tolerated the procedure well without any complication, the procedure was repeated in the same manner on the left side. A total of 40 mg of Kenalog was used for this procedure. The patient returned to supine position after the back was cleaned and a Band- Aid applied, the patient transported to recovery room in stable condition and he was monitored for 30 minutes before she was discharged home in stable condition . patient will follow up with the pain clinic in a few weeks. A copy of the needle placement was saved to the C-arm machine.
[2020-03-24] MEDS ORDERED: IV FLUID CONTINUATION 1,000 ML IV ONE (14:18)
--- NOTE | 2020-03-24 14:27 | FL ---
EXAMINATION TYPE: FL guided pain mgmt statistic DATE OF EXAM: 03/24/2020 HISTORY: Fluoroscopy time 3 seconds of fluoroscopy provided. IMPRESSION: 1. Fluoroscopy time.
[2020-03-24 14:34] VITALS: BP 143/77; PULSE 66
== END 2020-03-24 14:47 | disposition home or self-care (01) ==
LOC: ORPAIN 12:58
PROVIDERS: ATTEND Anesthesiology
DX: G89.29 Other chronic pain (principal); M46.1 Sacroiliitis, not elsewhere classified; M53.3 Sacrococcygeal disorders, not elsewhere classified; M47.817 Spondylosis without myelopathy or radiculopathy, lumbosacral region
CPT/HCPCS: 27096; J2250; J3301; J3010; J2795

== ENCOUNTER → 2020-04-27 | Outpatient (CLI) | payer OTHER | END | disposition home or self-care (01) | LOC: PNWHC3 07:39 | PROVIDERS: ATTEND Anesthesiology | DX: Z53.9 Procedure and treatment not carried out, unspecified reason (principal) ==

== ENCOUNTER → 2020-05-25 | Outpatient (CLI) | payer OTHER ==
[2020-05-25 08:21] VITALS: BP 115/73; PULSE 88; RESP 16; TEMP 98.2
--- NOTE | 2020-05-25 08:51 | P.PN ---
Subjective Progress Note Date: 05/25/20 This is for visit for this 64 years old male with a chronic history of severe low back pain is diagnosed with Bilateral Sacroiitis lumbar degenerative disc disease and lumbar spondylosis with lumbar facet arthropathy, without myelopathy, the recently we have done Bilateral sacroiliac joints steroid inject ions , patient had good pain relief from it , and he had significant decrease in pain medicationsintake , also he was able to do more for activities of daily livings, it is complaining of pain, the pain is constant and increases with any activity interfering with her quality of life he continue to use Ultram 50 mg when necessary every 8 hours, he denies any motor or sensory deficit denies any fever or night sweats and there is no change in the bowel movement or urination Objective - Vital Signs Vital signs: Vital Signs Temp 98.2 F 05/25/20 08:18 Pulse 88 05/25/20 08:18 Resp 16 05/25/20 08:18 BP 115/73 05/25/20 08:18 Pulse Ox 97 05/25/20 08:18 - Exam -Constitutiona : Cooperative , not in acute distress . -HEENT : nech : supple , no Lymphadenopathy , normal thyroid size - Genitourinary : Defferred . - neurologic : Cranial nerve II to XII intact , no focal neurological deffecit . -psychatric : alert , oriented X 3 , appropriate affect , intact judgment and insight . -Lymphatic : no Lymphadenopathy . - musculoskeltal : Lumber spine moter stegnth lower extremities ,thigh and legs 5/5 Right side , 5/5 Left side deep tendon reflexes : normal Knee Jerk , normal ankle Jerk lumber facet Loading Test = negative bilaterally Range of motion of the lumbar spine Flexion 60 degrees, extension 30 degrees strait leg raising test = negative bilateral Fabere test= negative bilaterally. Sever tenderness over the Sacroiliac joint on the Right , and Left sides Gaenslen test= positive right ,and positive left . Seated flexion test= positive right ,and positive Left . Assessment and Plan Plan: Assessment and plan=1-lumbar degenerative disc disease 2-lumbar spondylosis with lumbar facet arthropathy without myelopathy 3-bilateral sacroiliitis. he benefit from bilateral sacroiliac joint steroid injections under fluoroscopy guidance - PQRS measures = - Patient's medications are documented in the chart. -Tobacco use is negative and counseling.Given. -Patient's has not received pneumococcal vaccine. -Advanced care planning discussed, patient not eligible. -Opiate contract not signed. -Pain positive and follow-up visit/procedure is scheduled. -Patient's blood pressure measured [115/73 ] , and documented in the record ,and patient will follow up with the primary care. -Patient's weight was measured and body mass index [ 25.8] above the normal limits and counseling was done. and patient instructed to follow-up with the primary care physician. -Patient was not identified as an unhealthy alcohol user Time with Patient: Less than 30
== END | disposition home or self-care (01) ==
LOC: PNWHC3 08:07
PROVIDERS: ATTEND Specialist
DX: M51.36 Other intervertebral disc degeneration, lumbar region (principal); M46.1 Sacroiliitis, not elsewhere classified; M47.816 Spondylosis without myelopathy or radiculopathy, lumbar region
CPT/HCPCS: 99211

== ENCOUNTER 2020-06-04 06:23 | Day surgery (SDC) | payer OTHER ==
[2020-06-02 14:51] VITALS: BMI 26.2
[2020-06-04 06:48] VITALS: RESP 16; TEMP 96.9
[2020-06-04] MEDS ORDERED: LACTATED RINGERS 1,000 ML IV ONE (06:52)
[2020-06-04] MEDS ORDERED: fentaNYL (PF) 50 MCG/ML 2 ML AMP ONE (06:55)
[2020-06-04] MEDS ORDERED: methylPREDNISolone ACETATE 40 MG/ML 1 ML VIAL ONE (06:55)
[2020-06-04] MEDS ORDERED: IOPAMIDOL M200 10 ML VIAL ONE (06:55)
[2020-06-04] MEDS ORDERED: MIDAZOLAM 2 MG/2 ML VIAL ONE (06:55)
[2020-06-04] MEDS ORDERED: ROPIVACAINE 5MG/ML 20ML VIAL ONE (06:55)
--- NOTE | 2020-06-04 07:00 | P.PCN ---
Date of Procedure: 06/04/20 Description of Procedure: Procedure: Sacroiliac joint injection bilateral Preoperative diagnosis: Sacroiliitis Postoperative diagnosis: Sacroiliitis Imaging: Fluoroscopy was used, images where saved to the medical record Complications: none Anesthesia: 1% lidocaine 5cc IV conscious sedation Description of the procedure: procedure risk and benefits discussed with the patient, including but not limited, risk of infection and bleeding, and allergic reaction to the medication and incomplete pain relief. Patient agreed and signed consent. Patient was taken to the room and placed in a prone position. Chlorhexidine was used to cleanse the skin. Under sterile conditions patient skin was anesthetized 1% lidocaine. Subcutaneous tissues were also anesthetized with a total 5 mL of 1% lidocaine. After that, a 22-gauge spinal needle was advanced through the anesthetized location under fluoroscopic guidance. Needle was advanced into the inferior portion of the sacroiliac joint. IV contrast was used to confirm spread within the joint. After adequate spread was achieved, 2.5 ML's of 0.5% ropivacaine with 40 mg of depomedrol was injected into the joint (steroid split between both sides if bilateral). Patient tolerated the procedure well. Sent to the recovery room in stable condition. Patient will follow up as directed .
[2020-06-04] MEDS ORDERED: IV FLUID CONTINUATION 1,000 ML IV ONE (07:14)
[2020-06-04 07:33] VITALS: BP 118/70; PULSE 58
--- NOTE | 2020-06-04 10:01 | FL ---
EXAMINATION TYPE: FL guided pain mgmt statistic DATE OF EXAM: 06/04/2020 HISTORY: Fluoroscopy time 4 seconds of fluoroscopy provided. IMPRESSION: 1. Fluoroscopy time.
== END 2020-06-04 07:47 | disposition home or self-care (01) ==
LOC: ORPAIN 06:23
PROVIDERS: ATTEND Hospitalist
DX: M46.1 Sacroiliitis, not elsewhere classified (principal)
CPT/HCPCS: 27096; J2250; J1030; J3010; Q9966; J2795

== ENCOUNTER → 2020-07-20 | Outpatient (CLI) | payer OTHER ==
--- NOTE | 2020-07-20 08:22 | P.PN ---
Subjective Progress Note Date: 07/20/20 This is for visit for this 64 years old male with a chronic history of severe low back pain,he is diagnosed with Bilateral Sacroiitis, lumbar degenerative disc disease ,and lumbar spondylosis with lumbar facet arthropathy, without myelopathy, recently we have done Bilateral sacroiliac joints steroid inj ections , patient had good pain relief from it , and he had significant decrease in pain medications intake , also he was able to do more for activities of daily livings, he continue to use Ultram 50 mg when necessary every 8 hours, he denies any motor or sensory deficit denies any fever or night sweats and there is no change in the bowel movement or urination, and getting prescription refill for his medication from his primary care Physical examination -Constitutiona : Cooperative , not in acute distress . -HEENT : nech : supple , no Lymphadenopathy , normal thyroid size - Genitourinary : Defferred . - neurologic : Cranial nerve II to XII intact , no focal neurological deffecit . -psychatric : alert , oriented X 3 , appropriate affect , intact judgment and insight . -Lymphatic : no Lymphadenopathy . - musculoskeltal : Lumber spine moter stegnth lower extremities ,thigh and legs 5/5 Right side , 5/5 Left side deep tendon reflexes : normal Knee Jerk , normal ankle Jerk lumber facet Loading Test = negative bilaterally Range of motion of the lumbar spine Flexion 60 degrees, extension 30 degrees strait leg raising test = negative bilateral Fabere test= negative bilaterally. Sever tenderness over the Sacroiliac joint on the Right , and Left sides Gaenslen test= positive right ,and positive left . Seated flexion test= positive right ,and positive Left . Assessment and plan=1-lumbar degenerative disc disease 2-lumbar spondylosis with lumbar facet arthropathy without myelopathy 3-bilateral sacroiliitis. The pain improved after RFA medial branch lumbar area, and after bilateral sacroiliac joint steroid injection Command patient continues Ultram 50 mg when necessary, and he will follow up in the pain clinic when necessary - PQRS measures = - Patient's medications are documented in the chart. -Tobacco use is negative and counseling.Given. -Patient's has not received pneumococcal vaccine. -Advanced care planning discussed, patient not eligible. -Opiate contract not signed. -Pain positive and follow-up visit/procedure is scheduled. -Patient's blood pressure measured [124/77 ] , and documented in the record ,and patient will follow up with the primary care. -Patient's weight was measured and body mass index [ 26.5] above the normal limits and counseling was done. and patient instructed to follow-up with the primary care physician. -Patient was not identified as an unhealthy alcohol user Time with Patient: Less than 30 Objective - Vital Signs Vital signs: Vital Signs Temp 98.3 F 07/20/20 08:10 Pulse 71 07/20/20 08:10 Resp 16 07/20/20 08:10 BP 124/77 07/20/20 08:10 Pulse Ox 98 07/20/20 08:10
== END ==
CPT/HCPCS: 99211

== ENCOUNTER 2021-09-09 19:23 | Emergency (ER) | payer OTHER, MEDICARE ==
[2021-09-09 19:29] VITALS: RESP 18; TEMP 98.2
[2021-09-09] MEDS ORDERED: KETOROLAC 15 MG/ML 1 ML VIAL IM STA (19:30)
[2021-09-09] MEDS ORDERED: ONDANSETRON 4 MG/2 ML VIAL IM STA (19:30)
[2021-09-09] MEDS ORDERED: SODIUM CHLORIDE 0.9% 1,000 ML IV STA (21:34)
[2021-09-09 21:53] LABS: Basophils # (A) 0.1 k/uL (0-0.2); Basophils % (A) 1 %; Eosinophils # (A) 0.1 k/uL (0-0.7); Eosinophils % (A) 1 %; HGB 15.2 gm/dL (13.0-17.5); Lymphocytes # (A) 1.3 k/uL (1.0-4.8); Lymphocytes % (A) 10 %; MCH 28.5 pg (25.0-35.0); MCV 91.7 fL (80.0-100.0); Mean Platelet Volume 7.5; Monocytes # (A) 0.3 k/uL (0-1.0); Monocytes % (A) 2 %; Neutrophils % (A) 87 %; Platelet Count 206 k/uL (150-450); RBC 5.35 m/uL (4.30-5.90); RDW 12.2 % (11.5-15.5); WBC 13.8 k/uL (3.8-10.6)
--- NOTE | 2021-09-09 22:20 | CT ---
EXAMINATION TYPE: CT abdomen pelvis wo con DATE OF EXAM: 09/09/2021 COMPARISON: 09/09/2018 HISTORY: kidney stone concern, lt sided pain CT DLP: 689.6 mGycm Automated exposure control for dose reduction was used. Images obtained from the diaphragm to the floor of the pelvis without contrast. There is some patchy linear density at the left lung base. There is subsegmental atelectasis right maty ng base. No pleural effusion or pneumothorax. Heart size is normal. There is no pericardial effusion. Liver spleen and stomach appear intact. The bile ducts are not dilated. There is no pancreatic mass. Gallbladder appears normal. There is no adrenal mass. Kidneys have normal size. There is mild left-sided hydronephrosis. There is obstructing 7 mm calculus at the ureteral pelvic junction. There are multiple bilateral renal calcul i that measure up to 3 mm. Right ureter appears normal. There is no retroperitoneal adenopathy. Appen jacky is posterior and appears normal. The bladder distends smoothly. There is no inguinal hernia. No f ree fluid in the pelvis. No evidence of a pelvic mass. Prostate measures 6.5 cm. No mesenteric edema. No evidence of bowel obstruction. There are multiple large bowel diverticula. No diverticulitis. There is no ascites or free air. The lumbar vertebra have fairly normal alignment. No compression fracture. There is degenerative disc space narrowing at L3-4 with spur formation. There is slight lumbar levoscoliosis. The bony pelvis i s intact. Sacroiliac joints are intact. No evidence of a hip fracture. IMPRESSION: Obstructing calculus at the left ureteropelvic junction with left-sided hydronephrosis. Bilateral cheng al calculi are increased in size and number compared to old exam. Colonic diverticulosis. Normal appendix. There is significant clearing of the atelectasis at the lung bases compared to old exam.
[2021-09-09 22:55] LABS: Albumin 4.4 g/dL (3.5-5.0); Calcium 9.3 mg/dL (8.4-10.2); Potassium 4.1 mmol/L (3.5-5.1); Total Bilirubin 0.9 mg/dL (0.2-1.3); Total Protein 7.1 g/dL (6.3-8.2)
[2021-09-09 23:16] LABS: Appearance,Urine Clear (Clear); Bilirubin,Urine Negative (Negative); Blood,Urine Large (Negative); Color,Urine Yellow; Glucose,Urine (UA) Negative (Negative); Ketones,Urine 1+ (Negative); Leukocyte Esterase,Urine Negative (Negative); Mucus,Urine Rare /hpf; Nitrite,Urine Negative (Negative); Protein,Urine Negative (Negative); RBC,Urine 30 /hpf (0-5); Specific Gravity,Urine 1.014 (1.001-1.035); Urobilinogen,Urine <2.0 mg/dL (<2.0); WBC,Urine 1 /hpf (0-5)
[2021-09-09] MEDS ORDERED: KETOROLAC 15 MG/ML 1 ML VIAL IVP STA (23:33)
[2021-09-09] MEDS ORDERED: ONDANSETRON 4 MG ODT STARTER PACK 2 TAB BTL PO STA (23:33)
[2021-09-09] MEDS ORDERED: TAMSULOSIN 0.4 MG CAP.ER.24H PO STA (23:34)
--- NOTE | 2021-09-09 23:37 | ED ---
Abdominal Pain HPI - General Chief Complaint: Abdominal Pain Stated Complaint: Abd pain Time Seen by Provider: 09/09/21 21:06 Source: patient Mode of arrival: ambulatory Limitations: no limitations - History of Present Illness Initial Comments: Patient is a 65-year-old male who presents to the emergency department with chief complaint of left-sided flank pain, nausea, and vomiting. Symptoms started this morning. Patient states he was told he had several kidney stones that do not require surgical intervention. Patient states he has not had an issue with kidney stones and a couple of years. Patient states that his symptoms feel similar to his previous kidney stone symptoms. He denies burning with urination and blood in the urine. Denies fever, chills, and other concerns. Patient states he was given pain and nausea medication in triage and now he has no pain or nausea at all. - Related Data Home Medications Medication Instructions Recorded Confirmed Doxazosin Mesylate 8 mg PO DAILY 09/09/18 07/20/20 traMADol HCL [Ultram] 50 mg PO Q6HR PRN 09/09/18 07/20/20 Fish Oil/Dha/Epa [Fish Oil 1,200 1 each PO DAILY 12/30/19 07/20/20 mg Fish Oil] Previous Rx's Medication Instructions Recorded Ketorolac [Toradol] 10 mg PO Q8HR PRN 5 Days #15 tab 09/09/21 Ondansetron Odt [Zofran Odt] 4 mg PO Q8HR PRN #12 tab 09/09/21 Tamsulosin [Flomax] 0.4 mg PO DAILY #7 cap 09/09/21 Allergies Allergy/AdvReac Type Severity Reaction Status Date / Time No Known Allergies Allergy Verified 07/16/20 16:10 Review of Systems ROS Statement: Those systems with pertinent positive or pertinent negative responses have been documented in the HPI. ROS Other: All systems not noted in ROS Statement are negative. Past Medical History Past Medical History: Prostate Disorder Additional Past Medical History / Comment(s): hx diverticuosis, HX KIDNEY STONES, back problems, History of Any Multi-Drug Resistant Organisms: None Reported Past Surgical History: Tonsillectomy Additional Past Surgical History / Comment(s): previous colonoscopy, PAIN CLINIC PROCEDURES Past Anesthesia/Blood Transfusion Reactions: No Reported Reaction Past Psychological History: No Psychological Hx Reported Smoking Status: Never smoker Past Alcohol Use History: None Reported Past Drug Use History: None Reported - Past Family History Mother Family Medical History: No Reported History General Exam Limitations: no limitations General appearance: alert, in no apparent distress Head exam: Present: atraumatic, normocephalic, normal inspection Eye exam: Present: normal appearance, PERRL, EOMI. Absent: scleral icterus, conjunctival injection, periorbital swelling Neck exam: Present: normal inspection Respiratory exam: Present: normal lung sounds bilaterally. Absent: respiratory distress, wheezes, rales, rhonchi, stridor Cardiovascular Exam: Present: regular rate, normal rhythm, normal heart sounds. Absent: systolic murmur, diastolic murmur, rubs, gallop, clicks GI/Abdominal exam: Present: soft, normal bowel sounds. Absent: distended, tenderness, guarding, rebound, rigid Back exam: Present: normal inspection, full ROM. Absent: CVA tenderness (R), CVA tenderness (L), paraspinal tenderness, vertebral tenderness Neurological exam: Present: alert, oriented X3, CN II-XII intact Psychiatric exam: Present: normal affect, normal mood Skin exam: Present: warm, dry, intact, normal color. Absent: rash Course Vital Signs 09/09/21 09/09/21/06/29 19:27 21:49 00:10 Temperature 98.2 F Pulse Rate 64 67 69 Respiratory 18 18 18 Rate Blood Pressure 164/105 103/61 103/67 O2 Sat by Pulse 99 96 96 Oximetry Medical Decision Making - Medical Decision Making This is a 65-year-old male with kidney stones who presents with left-sided flank pain, nausea, vomiting. Thorough history and examination were performed. Patient is well-appearing and denies pain and nausea entirely since he got Toradol and Zofran in triage. There is no CVA tenderness which may be due to pain medication. I will obtain laboratory studies and CT of the abdomen and pelvis without contrast. Patient has mild leukocytosis at 13.8. Urine is not infectious however does reveal [address] shows a 7 mm obstructing calculus at the left ureteropelvic junction with left-sided hydronephrosis. There are also bilateral renal calculi that are increased in size and number compared to previous CT. Case discussed with Dr. Arzate who states if patient's symptoms are controlled he can be discharged with urology referral. He instructed patient to call first thing in the morning. Results discussed with patient. Patient feels comfortable going home. I will give him a dose of Toradol and Flomax before he leaves as well as a Zofran starter pack. I will prescribe him Toradol, Zofran, and Flomax. Patient instructed to follow up with urology first thing in the morning. Return parameters discussed. He verbalizes understanding and is agreeable to this plan . Dr. Sheikh is my attending. - Lab Data Result diagrams: 09/09/21 21:41 09/09/21 21:41 Lab Results 09/09/21 09/09/21 09/09/21 Range/Units 21:41 21:41 22:25 WBC 13.8 H (3.8-10.6) k/uL RBC 5.35 (4.30-5.90) m/uL Hgb 15.2 (13.0-17.5) gm/dL Hct 49.0 (39.0-53.0) % MCV 91.7 D (80.0-100.0) fL MCH 28.5 (25.0-35.0) pg MCHC 31.0 (31.0-37.0) g/dL RDW 12.2 (11.5-15.5) % Plt Count 206 (150-450) k/uL MPV 7.5 Neutrophils % 87 % Lymphocytes % 10 % Monocytes % 2 % Eosinophils % 1 % Basophils % 1 % Neutrophils # 12.0 H (1.3-7.7) k/uL Lymphocytes # 1.3 (1.0-4.8) k/uL Monocytes # 0.3 (0-1.0) k/uL Eosinophils # 0.1 (0-0.7) k/uL Basophils # 0.1 (0-0.2) k/uL Sodium 136 L (137-145) mmol/L Potassium 4.1 (3.5-5.1) mmol/L Chloride 106 (98-107) mmol/L Carbon Dioxide 23 (22-30) mmol/L Anion Gap 7 mmol/L BUN 25 H (9-20) mg/dL Creatinine 1.10 (0.66-1.25) mg/dL Est GFR (CKD-EPI)AfAm 81 (>60 ml/min/1.73 sqM) Est GFR (CKD-EPI)NonAf 70 (>60 ml/min/1.73 sqM) Glucose 112 H (74-99) mg/dL Calcium 9.3 (8.4-10.2) mg/dL Total Bilirubin 0.9 (0.2-1.3) mg/dL AST 26 (17-59) U/L ALT 20 (4-49) U/L Alkaline Phosphatase 78 (38-126) U/L Total Protein 7.1 (6.3-8.2) g/dL Albumin 4.4 (3.5-5.0) g/dL Lipase 111 (23-300) U/L Urine Color Yellow Urine Appearance Clear (Clear) Urine pH 6.0 (5.0-8.0) Ur Specific [place] 1.014 (1.001-1.035) Urine Protein Negative (Negative) Urine Glucose (UA) Negative (Negative) Urine Ketones 1+ H (Negative) Urine Blood Large H (Negative) Urine Nitrite Negative (Negative) Urine Bilirubin Negative (Negative) Urine Urobilinogen <2.0 (<2.0) mg/dL Ur Leukocyte Esterase Negative (Negative) Urine RBC 30 H (0-5) /hpf Urine WBC 1 (0-5) /hpf Urine Mucus Rare H (None) /hpf Disposition Clinical Impression: Flank pain, Nausea and vomiting, Kidney stone on left side, Hydronephrosis Disposition: HOME SELF-CARE Condition: Fair Additional Instructions: Please take medication as directed. Follow-up with urology specialist in the morning. Return to the emergency department if you experience new, concerning, or worsening symptoms. Prescriptions: Tamsulosin [Flomax] 0.4 mg PO DAILY #7 cap Ketorolac [Toradol] 10 mg PO Q8HR PRN 5 Days #15 tab PRN Reason: Pain Ondansetron Odt [Zofran Odt] 4 mg PO Q8HR PRN #12 tab PRN Reason: Nausea Is patient prescribed a controlled substance at d/c from ED?: No Referrals: Wilfredo Orozco DO [Primary Care Provider] - 1-2 days Chalo Arzate MD [STAFF PHYSICIAN] - 1-2 days Time of Disposition: 23:37
[2021-09-10 00:11] VITALS: BP 103/67; PULSE 69
== END 2021-09-10 00:18 | disposition home or self-care (01) ==
LOC: EC 19:23
DX: N13.2 Hydronephrosis with renal and ureteral calculous obstruction (principal)
CPT/HCPCS: 36415; 80053; 83690; 85025; 81001; 74176; 99284; 96374; 96361 ×2; 96372 ×2; J2405; J1885 ×2; S0119

== ENCOUNTER → 2021-09-13 | Outpatient (CLI) | payer OTHER, MEDICARE ==
--- NOTE | 2021-09-13 09:57 | XR ---
EXAMINATION TYPE: XR KUB DATE OF EXAM: 09/13/2021 COMPARISON: 09/09/2018 HISTORY: Renal stone TECHNIQUE: One view abdominal series FINDINGS: The osseous structures are intact. The bowel gas pattern is nonspecific. There is a 4 mm proximal le ft ureteral calculus. Hypertrophic change and narrowing of the hip joints. Scoliosis with degenerativ e changes of the spine. IMPRESSION: 1. 4 mm proximal left ureteral calculus has migrated from the mid left kidney.
== END | disposition home or self-care (01) ==
LOC: RADXRMAIN 08:38
PROVIDERS: ATTEND Urology
DX: N20.2 Calculus of kidney with calculus of ureter (principal)
CPT/HCPCS: 74018

== ENCOUNTER 2021-09-27 05:51 | Day surgery (SDC) | payer MEDICARE, OTHER ==
--- NOTE | 2021-09-26 20:50 | P.HPIHPCON ---
History of Present Illness H&P Date: 09/26/21 This is a 65 yo male with hx of 7 mm left sided proximal stone, he is symptomatic from his stone, option of ESWL vs Ureteroscopy was discussed with him. risk of bleeding, infection, persistent stone fragment and renal hematoma was discussed. He understood all risk and agreed to proceed with left ESWL Consent for Procedure: I have explained the operation/procedure to the patient, including the risks, benefits, side effects, alternative therapies (including not receiving the proposed treatment or service), the likelihood of the patient achieving his/her goals, and potential recuperation problems for the procedure/sedation/analgesia, as well as any blood products, if indicated. I also explained to the patient the risks, benefits and side effects of the alternatives, as well as the risks related to not receiving the proposed procedure, care, treatment, or services. Past Medical History Past Medical History: Osteoarthritis (OA), Prostate Disorder Additional Past Medical History / Comment(s): hx diverticulosis, HX KIDNEY STONES, back problems, had covid in 2020-affected heart rate & was put on toprol, hypoglycemia History of Any Multi-Drug Resistant Organisms: None Reported Past Surgical History: Tonsillectomy Additional Past Surgical History / Comment(s): colonoscopy, PAIN CLINIC PROCEDURES Past Anesthesia/Blood Transfusion Reactions: No Reported Reaction Smoking Status: Never smoker - Past Family History Mother Family Medical History: No Reported History Medications and Allergies Home Medications Medication Instructions Recorded Confirmed Type Doxazosin Mesylate 8 mg PO HS 09/09/18 09/24/21 History Fish Oil/Dha/Epa [Fish Oil 1,200 1 each PO DAILY 12/30/19 09/24/21 History mg Fish Oil] Acetaminophen-Codeine 300-30mg 1 - 2 tab PO Q4-6H PRN 09/24/21 09/24/21 History [Tylenol w/codeine #3] Metoprolol Succinate (ER) [Toprol 25 mg PO HS 09/24/21 09/24/21 History Xl] Tamsulosin [Flomax] 0.4 mg PO HS 09/24/21 09/24/21 History Allergies Allergy/AdvReac Type Severity Reaction Status Date / Time No Known Allergies Allergy Verified 09/24/21 12:47 Surgical - Exam - General no distress, moderate pain - Eyes normal ocular movement, pale - Respiratory normal expansion, normal respiratory effort Assessment and Plan Assessment: OR for left ESWL, surgery will be performed by Dr Starr
[2021-09-27] MEDS ORDERED: MIDAZOLAM 2 MG/2 ML VIAL IV PRN (06:23)
[2021-09-27] MEDS ORDERED: LACTATED RINGERS 1,000 ML IV SCH (06:23)
[2021-09-27] MEDS ORDERED: HYDROmorphone 0.5 MG/0.5 ML SYRINGE IVP PRN (07:00)
[2021-09-27 07:02] LABS: Glucose,Whole Blood 95 mg/dL (70-110)
[2021-09-27 07:06] VITALS: TEMP 97.2
[2021-09-27] MEDS ORDERED: FUROSEMIDE 10 MG/ML 2 ML VIAL ONE (07:40)
[2021-09-27] MEDS ORDERED: PROPOFOL 10 MG/ML 20 ML VIAL IV ONE (07:40)
[2021-09-27] MEDS ORDERED: fentaNYL (PF) 50 MCG/ML 2 ML AMP ONE (07:40)
[2021-09-27] MEDS ORDERED: KETAMINE 10 MG/ML 20 ML VIAL ONE (07:40)
[2021-09-27] MEDS ORDERED: LIDOCAINE 2% INJ 20 MG/ML (2 ML VIAL) ONE (07:40)
[2021-09-27] MEDS ORDERED: MIDAZOLAM 2 MG/2 ML VIAL ONE (07:40)
--- NOTE | 2021-09-27 08:32 | P.OP ---
Date of Procedure: 09/27/21 Preoperative Diagnosis: Left ureteral calculus Postoperative Diagnosis: Same Procedure(s) Performed: Left extracorporal shockwave lithotripsy (ESWL) Anesthesia: MAC Surgeon: Dionicio Starr Estimated Blood Loss (ml): 0 IV fluids (ml): 350 Pathology: none sent Condition: stable Disposition: PACU Indications for Procedure: This is a 65 yo male with a 7 mm left sided proximal stone. He is symptomatic, and alternative treatment options were reviewed. He has elected to undergo ESWL. Preoperative KUB x-ray reveals that the calculus has migrated to the left distal ureter. Operative Findings: Excellent fragmentation of the calculus. Description of Procedure: The patient was taken to the operating room and placed on the [employer]ornier WeVue Delta II lithotripter in the supine position. The calculus was seen on biplanar fluoroscopy. Lasix 10 mg was given intravenously. Once the patient was properly positioned and sedated, lithotripsy was performed. The energy level was gradually increased per protocol, to an energy level of 6. A total of 3000 shocks were given at a rate of 80 shocks per minute. Fluoroscopy was utilized at a minimum to ensure proper positioning and determine the treatment status. The calculus changed in appearance, consistent with fragmentation. The patient tolerated the procedure well was taken to the recovery room in stable condition. Instructions were given to strain the urine, and the patient will follow-up within one week.
--- NOTE | 2021-09-27 08:37 | XR ---
KUB HISTORY: Left ureteral stone Frontal KUB on 2 images Correlated to prior exam 09/13/2021 The proximal left ureteral calculus seen on prior exam is thought to have migrated to the level the d istal left ureter. No other interval change. IMPRESSION: Distal left ureteral calculus.
[2021-09-27] MEDS ORDERED: GLYCOPYRROLATE 0.2 MG/ML 2 ML VIAL IVP ONE (09:39)
[2021-09-27 09:58] VITALS: RESP 16
[2021-09-27 10:10] VITALS: BP 144/76; PULSE 50
== END 2021-09-27 10:30 | disposition home or self-care (01) ==
LOC: ORWHC2ENDO 05:51
PROVIDERS: ATTEND Urology
DX: N20.1 Calculus of ureter (principal); I10 Essential (primary) hypertension; M19.90 Unspecified osteoarthritis, unspecified site; N42.9 Disorder of prostate, unspecified; K57.90 Diverticulosis of intestine, part unspecified, without perforation or abscess without bleeding; E16.2 Hypoglycemia, unspecified; I49.9 Cardiac arrhythmia, unspecified; U09.9 Post COVID-19 condition, unspecified; Z90.89 Acquired absence of other organs; Z79.899 Other long term (current) drug therapy
CPT/HCPCS: 74018; 50590; J2250; J1940; J3010; J2704; J2001

== ENCOUNTER → 2021-10-04 | Outpatient (CLI) | payer MEDICARE ==
--- NOTE | 2021-10-04 16:53 | XR ---
EXAMINATION TYPE: XR KUB DATE OF EXAM: 10/04/2021 COMPARISON: 09/27/2021 HISTORY: Pain TECHNIQUE: One view abdominal series FINDINGS: The a previously noted calcification no longer seen. Scoliosis with hypertrophic and degenerative noah nge of the spine. Arthropathy of the hips. Nonspecific gas pattern with retained debris correlate for constipation. IMPRESSION: 1. There appears to be interval passage of the left ureteral calcification.
== END | disposition home or self-care (01) ==
LOC: RADXRMAIN 14:28
PROVIDERS: ATTEND Urology
DX: R10.9 Unspecified abdominal pain (principal)
CPT/HCPCS: 74018

== ENCOUNTER → 2022-02-22 | Outpatient (CLI) | payer OTHER ==
--- NOTE | 2022-02-22 15:48 | MR ---
EXAMINATION TYPE: MR shoulder RT wo con DATE OF EXAM: 02/22/2022 COMPARISON: None. HISTORY: R shoulder pain TECHNIQUE: Multiplanar, multisequence imaging of the right shoulder is performed without contrast. FINDINGS: Rotator Cuff: Focal articular surface tearing involving the anterior two thirds fibers of the distal supraspinatus tendon measuring approximately 9 mm sagittal image 24 for reference. Infraspinatus tend on is intact. Subscapularis tendon intact. Rotator cuff muscle bulk preserved. Acromioclavicular Joint: Moderate to severe narrowing and capsular hypertrophy with mild to moderate spurring. Loss of underlying fat plane suggesting underlying impingement reference sagittal image 15 mild edema along the myotendinous junction of the supraspinatus muscle at this level is noted. Glenohumeral Joint: Small to moderate size joint effusion. No significant spurring. Labrum: The labrum appears grossly intact given limitation of non-arthrogram study. Biceps Tendon: The long head of biceps is in normal location within bicipital groove. Bone marrow signal: Subchondral cystic change involving the anterior and lateral humeral head. Other: No additional significant abnormality is appreciated. IMPRESSION: Prominent AC joint arthropathy with suggestion of underlying impingement. Partial tearing at articular surface involving anterior fibers of the distal supraspinatus tendon.
== END | disposition home or self-care (01) ==
LOC: RADMRIMAIN 07:31
DX: M75.111 Incomplete rotator cuff tear or rupture of right shoulder, not specified as traumatic (principal); M12.811 Other specific arthropathies, not elsewhere classified, right shoulder